=== PATIENT | female | born 1955 | race Caucasian/White ===

== ENCOUNTER 2024-01-26 10:12 | Emergency (ER) | payer MEDICARE, SELFPAY ==
--- NOTE | ~2024-01-26 | XR_ITS ---
EXAMINATION: XR ankle LT min 3V, XR foot LT min 3V DATE: 01/26/2024 10:30 INDICATION: Lateral left foot and ankle pain post fall TECHNIQUE: 1. Anteroposterior, mortise and lateral view of the left ankle were obtained. 2. Dorsoplantar, oblique and lateral views of the left foot were obtained. COMPARISON: None. FINDINGS: Nondisplaced small flake-like avulsion fracture along the dorsal cortex of the proximal margin of the navicula. Additional nondisplaced avulsion fracture at the lateral base of the fifth metatarsal with intra-articular extension. No other fractures identified. Mild hallux valgus with moderate osteoarth ritis at the first metatarsophalangeal joint. Additional polyarticular osteoarthritis, moderate sever ity at the second and third tarsal metatarsal joints, mild at the ankle, remaining tarsal metatarsal and multiple interphalangeal joints. Small plantar calcaneal spur. No ankle joint effusion. Soft tiss ue swelling about the lateral malleolus and over the dorsal and lateral aspects of the midfoot. IMPRESSION: 1. Nondisplaced avulsion fractures at the lateral base of the fifth metatarsal and at the dorsal demarcus in of the proximal navicular. 2. 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 Reviewed, dictated and finalized at location A. IMPRESSION: 1. Nondisplaced avulsion fractures at the lateral base of the fifth metatarsal and at the dorsal margin of the proximal navicular. 2. 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
[2024-01-26 10:17] VITALS: BP 154/81; PULSE 98; RESP 17; TEMP 36.4; O2SAT 99
--- NOTE | 2024-01-26 10:22 | PC.NURSE ---
xray at the bedside
[2024-01-26] MEDS: KETOROLAC 30 MG/ML VIAL (*BKC) IM (10:25)
--- NOTE | 2024-01-26 10:51 | ED.LOWEXIN ---
HPI - Extremity Injury (Lower) General Chief Complaint: Extremity Injury, Lower Stated Complaint: Lower extremity problem Time Seen by Provider: 01/26/24 10:17 Source: patient and family Mode of arrival: wheelchair Limitations: no limitations History of Present Illness HPI Narrative: this is a 60-year-old female that twisted her her foot and ankle on the left few days ago causing pain and swelling and tenderness with palpation and locking. complaint: foot injury Onset (ago): day(s) Injury: Left: foot ( swelling and pain) Related Data Home Medications Medication Instructions Recorded Confirmed atorvastatin 20 mg tablet 20 mg PO DAILY 01/26/24 01/26/24 chlorthalidone 25 mg tablet 12.5 mg PO DAILY 01/26/24 01/26/24 losartan 50 mg tablet 50 mg PO DAILY 01/26/24 01/26/24 meloxicam 7.5 mg tablet 7.5 mg PO DAILY 01/26/24 01/26/24 Allergies Allergy/AdvReac Type Severity Reaction Status Date / Time No Known Allergies Allergy Unverified 01/26/24 10:23 Review of Systems Review of Systems: All systems reviewed & are unremarkable except as noted in HPI and below PMFSH Past Medical History Medical History HTN (hypertension) Exam Const: General: healthy appearing and no acute distress Nutritional Appearance: well nourished Orientation/consciousness: patient oriented x3 Limitations: no limitations Eyes: Conjunctivae: conjunctivae normal Pupils: Equal, round and reactive pupils present Neck: Neck: normal visual inspection, no lymphadenopathy and no meningeal signs Chest: Chest palpation & inspection: normal inspection of the chest Resp: Effort & Inspection: normal respiratory effort Auscultation: clear to auscultation bilaterally Cardio: Rate: regular rate Rhythm: regular rhythm Skin: General skin exam: normal color Rashes: no rashes Wounds: no wounds Extrem: General: edema Other: tenderness lateral aspect over the base of her left foot Course Course Emergency Course: patient received 30mg IM Toradol after reassessment and ice pack patient symptoms have improved x-ray performed sugars avulsion fracture at the base of the 5th metatarsal Vital Signs Vital signs: Vital Signs Temperature 36.4 C 01/26/24 10:17 Pulse Rate 98 01/26/24 10:17 Respiratory Rate 17 01/26/24 10:17 Blood Pressure 154/81 H 01/26/24 10:17 Pulse Oximetry 99 01/26/24 10:17 Oxygen Delivery Room Air 01/26/24 10:17 Temperature 36.4 C 01/26/24 10:17 Pulse Rate 98 01/26/24 10:17 Respiratory Rate 17 01/26/24 10:17 Blood Pressure 154/81 H 01/26/24 10:17 Pulse Oximetry 99 01/26/24 10:17 Oxygen Delivery Room Air 01/26/24 10:17 Critical Care Time Critical Care Time Critical Care Time: No Discharge Plan Discharge Clinical Impression: Foot fracture, left Qualifiers: Encounter type: initial encounter Fracture type: closed Qualified Code(s): S92.902A - Unspecified fracture of left foot, initial encounter for closed fracture Patient Disposition: Home, Self-Care Condition: Stable Instructions: Antibiotic Form, Foot Fracture in Adults (ED) Additional Instructions: advised to continue postop shoe follow up with primary within a week and Continue ice and meloxicam Prescriptions: No Action losartan 50 mg tablet 50 mg PO DAILY atorvastatin 20 mg tablet 20 mg PO DAILY chlorthalidone 25 mg tablet 12.5 mg PO DAILY meloxicam 7.5 mg tablet 7.5 mg PO DAILY Follow-up/Referrals: Harms,Keenan Heath M.D. [Primary Care Provider] - Time of Disposition: 10:56
[2024-01-26 11:14] VITALS: BP 142/81; PULSE 79; RESP 16; TEMP 36.6; O2SAT 98
== END 2024-01-26 11:14 | disposition home or self-care (01) ==
PROVIDERS: Emergency Provider Emergency Medicine; PCP Family Medicine
DX: S92.902A Unspecified fracture of left foot, initial encounter for closed fracture (principal); I10 Essential (primary) hypertension; Z79.899 Other long term (current) drug therapy; Z79.1 Long term (current) use of non-steroidal anti-inflammatories (NSAID); X50.0XXA Overexertion from strenuous movement or load, initial encounter
CPT/HCPCS: 73610; 73630; 96372; 99284; J1885